=== PATIENT | male | born 1985 | race American Indian/Alaskan Native ===

== ENCOUNTER 2018-07-14 22:51 | Emergency (ER) | payer BC, MEDICAID ==
[2018-07-14 22:58] VITALS: TEMP 98.1; O2SAT 97
[2018-07-14] MEDS ORDERED: DiphenhydrAMINE 50 mg/ml Inj IVP STA (23:26)
--- NOTE | 2018-07-14 23:41 | ED PDOC ---
Arrival/HPI <Chance Mas - Last Filed: 07/15/18 01:36> - General Historian: Patient - History of Present Illness Narrative History of Present Illness (Text): 07/14/18 23:30 32 y o male with past medical history of Sleep apnea and impaired glucose tolerance, presents to the emergency department complaining of dizziness and L sided frontal headache that started several hrs prior. 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 Pt unsure if he lost consciousness during episode. Pt states he pulled bus over on the side of the road and got a ride home by one of his co-workers. Stated he called an ambulance from home to bring him here. States was able to walk to get into the ambulance without assistance, brought into the emergency department by wheelchair. Pt was concerned and came to the emergency department because he thought he might have had a seizure. Denies hx of seizures in past. Rates headache as 8/10 currently, describes it as constant and throbbing. Denies photophobia, vision changes, tearing from L eye, eye discharge, tinnitus, vertigo-like symptoms, fever, chills, chest pain, shortness of breath, n/v/d/c, abd pain, urinary complaints, or other symptoms. Past medical history: Sleep apnea, Impaired glucose tolerance, TIA 7 y ago (was admitted for 3 days to the hospital; had numbness and tingling in opthalmic and maxillary distributions that resolved on own), vitamin D deficiency PSurgHx: Penile shunts placed for hx erectile dysfunction 10 y ago (pt states he had an erection that lasted for greater than 72 hrs) Allergies: NKDA Meds: MVT, vit D3 2000 U daily Fam hx: DM2, lung and colon ca; denies hx of seizures or epilepsy in the family Soc hx: denies smoking or illicit drug use; admits to social EtOH use PMD: none Time/Duration: Prior to Arrival <Juancho Vnan - Last Filed: 07/15/18 01:49> - General Chief Complaint: Dizziness/Lightheaded Past Medical History - Infectious Disease Hx of Infectious Diseases: None - Pulmonary Hx Sleep Apnea: Yes - Psychiatric Hx Substance Use: No - Anesthesia Hx Anesthesia: No <Juancho Vann - Last Filed: 07/15/18 01:49> Family/Social History Family/Social History: Diabetes, Neoplasm/Cancer Smoking Status: Never Smoked Hx Alcohol Use: No Hx Substance Use: No <Juancho Vann - Last Filed: 07/15/18 01:49> Allergies/Home Meds <Chance Mas - Last Filed: 07/15/18 01:36> <Juancho Vann - Last Filed: 07/15/18 01:49> Allergies/Adverse Reactions: Allergies No Known Allergies Allergy (Verified 07/14/18 22:58) Home Medications: Home Meds Medication Instructions Recorded Confirmed No Known Home Med 07/14/18 07/14/18 Review of Systems - Review of Systems Constitutional: absent: Fatigue, Fevers, Night Sweats Eyes: absent: Vision Changes, Photophobia, Eye Pain ENT: TMJ Pain, Sinus Congestion. absent: Hearing Changes, Tinnitus, Rhinorrhea Respiratory: Normal. absent: SOB, Cough Cardiovascular: absent: Chest Pain, Palpitations, MANJARREZ Gastrointestinal: absent: Abdominal Pain, Stool Changes, Constipation, Diarrhea, Nausea, Vomiting Musculoskeletal: absent: Arthralgias, Back Pain, Neck Pain, Joint Swelling, Myalgias Skin: absent: Rash, Pruritis Neurological: Headache, Dizziness. absent: Focal Weakness, Gait Changes, Speech Changes, Facial Droop, Disequilibrium Psychiatric: absent: Anxiety <Juancho Vann - Last Filed: 07/15/18 01:49> Physical Exam Vital Signs Temp Pulse Resp BP Pulse Ox 07/14/18 22:58 98.1 F 96 H 21 111/74 97 <Chance Mas - Last Filed: 07/15/18 01:36> Vital Signs Reviewed: Yes Vital Signs Temp Pulse Resp BP Pulse Ox 07/14/18 22:58 98.1 F 96 H 21 111/74 97 Temperature: Afebrile Blood Pressure: Normal Pulse: Regular Respiratory Rate: Normal Appearance: Positive for: Well-Appearing, Non-Toxic, Comfortable Pain Distress: Moderate Mental Status: Positive for: Alert and Oriented X 3 - Systems Exam Head: Present: Atraumatic, Normocephalic. No: Tenderness, Swelling Pupils: Present: PERRL Extroacular Muscles: Present: EOMI Conjunctiva: Present: Normal Ears: Present: Normal, NORMAL TM. No: Erythema Mouth: Present: Moist Mucous Membranes Neck: Present: Normal Range of Motion. No: Meningeal Signs, MIDLINE TENDERNESS, JVD, Lymphadenopathy Respiratory/Chest: Present: Clear to Auscultation, Good Air Exchange. No: Respiratory Distress, Accessory Muscle Use, Wheezes, Rales, Rhonchi Cardiovascular: Present: Regular Rate and Rhythm, Normal S1, S2. No: Murmurs, Rub, Gallop Abdomen: Present: Normal Bowel Sounds. No: Tenderness, Distention, Mass/Organomegaly Upper Extremity: Present: Normal Inspection, Normal ROM, NORMAL PULSES, Neurovascularly Intact, Capillary Refill < 2s, Norm 2-Pt Discrimination. No: Cyanosis, Edema Lower Extremity: Present: Normal Inspection, NORMAL PULSES, Normal ROM, Neurovascularly Intact, Capillary Refill < 2 s. No: Edema, CALF TENDERNESS, Cyanosis Neurological: Present: GCS=15, CN II-XII Intact, Speech Normal, Motor Func Grossly Intact, Normal Sensory Function, Normal Cerebellar Funct, Norm Deep Tendon Reflexes, Gait Normal, Memory Normal, Normal 2Pt Descrimination Skin: Present: Warm, Dry, Normal Color. No: Rashes Psychiatric: Present: Alert, Oriented x 3, Normal Insight, Normal Concentration <Juancho Vann - Last Filed: 07/15/18 01:49> Medical Decision Making ED Course and Treatment: Impression: Pt seen and evaluated with medical advisor. Aware and agree with HPI, clinical findings, plan, and management. Pt, whose past medical history includes sleep apnea, presented for dizziness and left-sided headache. Plan: -- CT Head w/o contrast -- Labs, troponin -- Reglan -- Benadryl -- Reassess and disposition Progress Notes: 07/15/18 01:28 CT Head: Normal size of the ventricles and extra-axial spaces for the patient's age. Normal white matter tracts of the supratentorial brain. Normal basal ganglia and thalami. Normal brainstem. Normal cerebellum. There is no demonstrated extra-axial, intraparenchymal, or intraventricular hemorrhage. There are no findings of an acute ischemic infarction. Normal calvarium. There is no demonstrated fracture. Normal soft tissue structures. Normal visualized paranasal sinuses. IMPRESSION: Normal unenhanced CT scan of the brain. Electronically signed on Jul 15, 2018 1:27:20 AM EST by: Hussein Mcelroy M.D., Certified by ABR, MSK, Neuroradiology - RAD Interpretation Radiology Orders: 07/14/18 23:25 HEAD W/O CONTRAST [CT] Stat Field Engineer: Radiologist - Medication Orders Current Medication Orders: Discontinued Medications Diphenhydramine HCl (Benadryl) 25 mg IVP STAT STA Stop: 07/14/18 23:27 Last Admin: 07/14/18 23:56 Dose: 25 mg IVP Administration Document 07/14/18 23:56 CNR (Rec: 07/14/18 23:56 CNR [id number]) Charges for Administration # of IVP Administrations 1 Metoclopramide HCl (Reglan) 10 mg IVP STAT STA Stop: 07/14/18 23:27 Last Admin: 07/14/18 23:56 Dose: 10 mg IVP Administration Document 07/14/18 23:56 CNR (Rec: 07/14/18 23:56 CNR [id number]) Charges for Administration # of IVP Administrations 1 <Chance Msa - Last Filed: 07/15/18 01:36> ED Course and Treatment: 07/14/18 23:48 CT head ordered. CBC, CMP, coags, troponin, ESR ordered. Reglan and Benadryl ordered. Continue to monitor clinically. 07/15/18 01:42 Reassessed pt. States headache is improved s/p Reglan and Benadryl. CT head negative for acute changes. Bloodwork unremarkable. Negative troponin. Instructed pt to take OTC Tylenol prn for symptoms. Instructed pt to see PMD within 1 week of discharge. Pt medically stable for discharge at this time. - RAD Interpretation Radiology Orders: 07/14/18 23:25 HEAD W/O CONTRAST [CT] Stat - Medication Orders Current Medication Orders: Diphenhydramine HCl (Benadryl) 25 mg IVP STAT STA Stop: 07/14/18 23:27 Metoclopramide HCl (Reglan) 10 mg IVP STAT STA Stop: 07/14/18 23:27 <Juacnho Vann - Last Filed: 07/15/18 01:49> - PA / SUPPLIER ENGINEER / Resident Statement / has reviewed & agrees with the documentation as recorded. / has examined the patient and agrees with the treatment plan. <Chance Mas - Last Filed: 07/15/18 01:36> Disposition/Present on Arrival <Chance Mas - Last Filed: 07/15/18 01:36> - Present on Arrival Any Indicators Present on Arrival: No History of DVT/PE: No History of Uncontrolled Diabetes: No Urinary Catheter: No History of Decub. Ulcer: No History Surgical Site Infection Following: None - Disposition Have Diagnosis and Disposition been Completed?: Yes Disposition Time: 01:49 <Juancho Vann - Last Filed: 07/15/18 01:49> - Disposition Diagnosis: Frontal headache Disposition: HOME/ ROUTINE Patient Problems: Current Active Problems Problem Status Onset Frontal headache Acute Condition: IMPROVED Discharge Instructions (ExitCare): Headache, Adult (DC) Print Language: KOREAN Additional Instructions: Please follow-up with your primary care physician within 1 week of hospital discharge. Can take Tylenol over the counter as needed for headache. Should symptoms recur or worsen, please call your primary care physician or report to your nearest emergency department. Referrals: Mily Brown MD [Primary Care Provider] - Follow up with primary Forms: [employer] (Filipino)
[2018-07-15 00:03] LABS: BASO # 0.03 K/mm3 (0.0-2.0); BASO % 0.2 % (0.0-3.0); EOS # 0.3 (0.0-0.7); EOS % 2.1 % (1.5-5.0); GRAN # 7.1 (1.4-6.5); GRAN % 56.6 % (50.0-68.0); HEMOGLOBIN 13.9 g/dL (14.0-18.0); LYMPH # 4.2 (1.2-3.4); LYMPH % 33.6 % (22.0-35.0); MEAN CELL VOLUME 86.1 fl (80.0-105.0); MEAN CORPUSCULAR HEMOGLOBIN 28.8 pg (25.0-35.0); MEAN CORPUSCULAR HGB CONC 33.4 g/dl (31.0-37.0); MEAN PLATELET VOLUME 10.2 fl (7.0-11.0); MONO # 0.9 (0.1-0.6); MONO % 7.5 % (1.0-6.0); RBC 4.83 10^6/uL (3.5-6.1); RED CELL DISTRIBUTION WIDTH 12.9 % (11.5-14.5); WHITE BLOOD COUNT 12.5 10^3/uL (4.5-11.0)
[2018-07-15 00:09] LABS: INR 1.14; PARTIAL THROMBOPLASTIN TIME 29.8 Seconds (25.1-36.5)
[2018-07-15 00:13] LABS: ALB/GLOB RATIO 1.1 (1.1-1.8); ALBUMIN 4.2 g/dL (3.0-4.8); ALT/SGPT 60 U/L (7-56); AST/SGOT 36 U/L (17-59); BLOOD UREA NITROGEN 12 mg/dL (7-21); CALCIUM 9.3 mg/dL (8.4-10.5); GFR NON-AFRICAN AMERICAN > 60
[2018-07-15 00:25] LABS: TROPONIN I < 0.01 ng/mL
[2018-07-15 02:00] VITALS: BP 116/65; PULSE 89; RESP 20
--- NOTE | 2018-07-15 08:44 | CT ---
Date of service: 07/15/2018 PROCEDURE: CT HEAD WITHOUT CONTRAST. HISTORY: Headache, dizziness COMPARISON: None available. TECHNIQUE: Axial computed tomography images were obtained through the head/brain without intravenous contrast. Radiation dose: Total exam DLP = 881.82 mGy-cm. This CT exam was performed using one or more of the following dose reduction techniques: Automated exposure control, adjustment of the mA and/or kV according to patient size, and/or use of iterative reconstruction technique. FINDINGS: HEMORRHAGE: No intracranial hemorrhage. BRAIN: No mass effect or edema. No atrophy or chronic microvascular ischemic changes. VENTRICLES: Unremarkable. No hydrocephalus. CALVARIUM: Unremarkable. PARANASAL SINUSES: Unremarkable as visualized. No significant inflammatory changes. MASTOID AIR CELLS: Unremarkable as visualized. No inflammatory changes. OTHER FINDINGS: The report concurs with the preliminary [facility] report IMPRESSION: Normal CT of the Head.
== END 2018-07-15 01:58 | disposition home or self-care (01) ==
LOC: ED 22:51
DX: R51 Headache (principal); G47.30 Sleep apnea, unspecified; R73.02 Impaired glucose tolerance (oral)
CPT/HCPCS: 70450; 80053; 84484; 85025; 85610; 85651; 85730; 96374; 96375; 99285; J1200; J2765